=== PATIENT | female | born 1980 | race African-American/Black ===

== ENCOUNTER 2016-10-08 18:53 | Emergency (ER) | payer MEDICAID, OTHER ==
--- NOTE | 2016-10-08 19:06 | ER Document Report ---
ED Medical Screen (RME) - General Stated Complaint: BACK PAIN Notes: 36 yo female c/o low back pain x 1 day. no trauma. no urinary symptoms. low grade fever. + recent surgery Sep 12, umbilical and inguinal hernia repair. no radiculopathy , no paresthesia. reports difficulty walking earlier today. walking with antalgic gait presently. + lumbar spinal and paraspinal tenderness TRAVEL OUTSIDE OF THE [place] IN LAST 30 DAYS: No - Related Data Allergies/Adverse Reactions: No Known Allergies Allergy (Unverified 10/08/16 19:01) Past Medical History Past Surgical History: Reports: Hx Appendectomy - Immunizations Immunizations up to date: Yes Hx Diphtheria, Pertussis, Tetanus Vaccination: No
[2016-10-08 19:32] LABS: ABSOLUTE BASOPHILS # (AUTO) 0.1 10^3/uL (0.0-0.2); ABSOLUTE EOSINOPHILS # (AUTO) 0.2 10^3/uL (0.0-0.6); ABSOLUTE LYMPHOCYTES (AUTO) 2.7 10^3/uL (0.5-4.7); ABSOLUTE MONOCYTES (AUTO) 0.5 10^3/uL (0.1-1.4); ABSOLUTE NEUT (AUTO) 2.1 10^3/uL (1.7-8.2); BASOPHILS % (AUTO) 1.3 % (0-2); HEMATOCRIT 34.3 % (36.0-47.0); HEMOGLOBIN 11.8 g/dL (12.0-15.5); HGB HCT DIFFERENCE 1.1; LYMPHOCYTES % (AUTO) 48.3 % (13-45); MEAN CORPUSCULAR HEMOGLOBIN 31.6 pg (27.0-33.4); MEAN CORPUSCULAR HGB CONC 34.3 g/dL (32.0-36.0); MEAN CORPUSCULAR VOLUME 92 fl (80-97); MONOCYTES % (AUTO) 9.6 % (3-13); RED BLOOD COUNT 3.72 10^6/uL (3.72-5.28); RED CELL DISTRIBUTION WIDTH 12.5 % (11.5-14.0); SEGMENTED NEUTROPHILS % (AUTO) 37.8 % (42-78); WHITE BLOOD COUNT 5.6 10^3/uL (4.0-10.5)
[2016-10-08 19:47] LABS: APPEARANCE,URINE CLEAR; BILIRUBIN,URINE NEGATIVE (NEGATIVE); GLUCOSE, URINE NEGATIVE (NEGATIVE); KETONES,URINE NEGATIVE (NEGATIVE); LEUKOCYTE ESTERASE,URINE NEGATIVE (NEGATIVE); NITRITE,URINE NEGATIVE (NEGATIVE); PROTEIN,URINE NEGATIVE (NEGATIVE); URINE SPECIFIC GRAVITY 1.017
[2016-10-08] MEDS ORDERED: KETOROLAC TROMETHAMINE 60 MG/2 ML SDV IM ONE (23:33)
--- NOTE | 2016-10-09 00:15 | ER Document Report ---
ED General - General TRAVEL OUTSIDE OF THE [place] IN LAST 30 DAYS: No <KERVIN MAYER - Last Filed: 10/09/16 08:28> <PEDRO CASTILLO - Last Filed: 10/09/16 10:27> - General Chief Complaint: Back Pain Stated Complaint: BACK PAIN Notes: Patient is a 36-year-old female presents with complaint of low back pain. Pain is mostly at the lumbosacral junction. She has some pain that goes down her right leg. No numbness. No loss of bowel control. No urinary retention. No numbness over the genital or rectal area. She says occasionally her right leg gives out. She says it does hurt walking around. She's never had this problem before. No fevers or infections. No recent trauma surgery injuries. No history of IV drug abuse. No other complaints at this time. (KERVIN MAYER) - Related Data Allergies/Adverse Reactions: No Known Allergies Allergy (Unverified 10/08/16 19:01) Past Medical History - Social History Smoking Status: Never Smoker Frequency of alcohol use: Occasional Drug Abuse: None Family History: Reviewed & Not Pertinent Patient has suicidal ideation: No Patient has homicidal ideation: No Renal/ Medical History: Denies: Hx Peritoneal Dialysis Past Surgical History: Reports: Hx Appendectomy - Immunizations Immunizations up to date: Yes Hx Diphtheria, Pertussis, Tetanus Vaccination: No <KERVIN MAYER - Last Filed: 10/09/16 08:28> Review of Systems <KERVIN MAYER - Last Filed: 10/09/16 08:28> <PEDRO CASTILLO - Last Filed: 10/09/16 10:27> - Review of Systems Notes: My Normal Review Basic REVIEW OF SYSTEMS: CONSTITUTIONAL : Denies fever, chills, or sweats. Denies recent illness.. RESPIRATORY: Denies cough, cold, or chest congestion. Denies shortness of breath, difficulty breathing, or wheezing. GASTROINTESTINAL: Denies abdominal pain. Denies nausea, vomiting, or diarrhea. Denies constipation. Last BM: GENITOURINARY: Denies difficulty urinating, painful urination, burning, frequency, or blood in urine. FEMALE GENITOURINARY: Denies vaginal bleeding, abnormal or irregular periods. LMP: MUSCULOSKELETAL: Low back pain SKIN: Denies rash or skin lesions. HEMATOLOGIC : Denies easy bruising or bleeding. NEUROLOGICAL: Denies altered mental status or loss of consciousness. Denies headache. Denies weakness or paralysis or loss of use of either side. Denies problems with gait or speech. Denies sensory or motor loss. ALL OTHER SYSTEMS REVIEWED AND NEGATIVE. (KERVIN MAYER) Physical Exam <KERVIN MAYER - Last Filed: 10/09/16 08:28> <PEDRO CASTILLO - Last Filed: 10/09/16 10:27> - Vital signs Vitals: Temp Pulse Resp BP Pulse Ox 97.7 F 65 18 101/55 L 100 10/09/16 06:49 10/09/16 06:49 10/09/16 06:49 10/09/16 06:49 10/09/16 06:49 - Notes Notes: General Appearance: Well nourished, alert, cooperative, no acute distress, moderate obvious discomfort. Vitals: reviewed, See vital signs table. Eyes: PERRL, EOMI, Conjuctiva clear Mouth: No decreasd moisture Lungs: No wheezing, No rales, No rhonci, No accessory muscle use, good air exchange bilaterally. Heart: Normal rate, Regular rythm, No murmur, no rub Abdomen: Normal BS, soft, No rigidity, No abdominal tenderness, No guarding, no rebound, no abdominal masses, no organomegaly. Previous surgical sites have healed well. No pain to palpation of anterior abdomen. Back: No reproducible pain to palpation of low back. Extremities: strength 5/5 in all extremities, good pulses in all extremities, no swelling or tenderness in the extremities, no edema. Skin: warm, dry, appropriate color, no rash Neuro: speech clear, oriented x 3, normal affect, responds appropriately to questions. Patellar reflexes are normal. Distal sensation is intact. Patient does have good strength with plantar and dorsiflexion against resistance. ( KERVIN MAYER) Course - Laboratory Result Diagrams: 10/08/16 19:10 <KERVIN MAYER - Last Filed: 10/09/16 08:28> - Laboratory Result Diagrams: 10/08/16 19:10 - Diagnostic Test Radiology reviewed: Reports reviewed - MRI of the lumbar spine shows only degenerative changes. <PEDRO CASTILLO - Last Filed: 10/09/16 10:27> - Re-evaluation Re-evalutation: 10/09/16 08:27 Patient's physical exam findings not meet criteria for emergency transfer for MRI. If still concerned that she had sudden onset of pain and some weakness going into her right leg. Did talk into staying for an MRI this morning. MRI has been performed and I am awaiting the results. Patient is not having worsening of her neurologic symptoms since being in the ER. She had some improvement with the Toradol. (KERVIN MAYER) - Vital Signs Vital signs: Temp Pulse Resp BP Pulse Ox 97.7 F 65 18 101/55 L 100 10/09/16 06:49 10/09/16 06:49 10/09/16 06:49 10/09/16 06:49 10/09/16 06:49 - Laboratory Laboratory results interpreted by me: 10/08/16 10/08/16 19:10 19:10 Hgb 11.8 L Hct 34.3 L Seg Neutrophils % 37.8 L Lymphocytes % 48.3 H Urine Urobilinogen 2.0 H Discharge <KERVIN MAYER - Last Filed: 10/09/16 08:28> <PEDRO CASTILLO - Last Filed: 10/09/16 10:27> - Discharge Clinical Impression: Back pain Qualifiers: Back pain location: low back pain Chronicity: acute Back pain laterality: bilateral Sciatica presence: with sciatica Sciatica laterality: sciatica of right side Qualified Code(s): M54.41 - Lumbago with sciatica, right side Condition: Good Instructions: Family Physicians / Practices Additional Instructions: LOW BACK PAIN: Three out of every four people will have an episode of disabling back pain during their lifetime. Most commonly the pain is due to straining of the muscles and ligaments in the low back. Usual treatment includes: (1) Rest on a firm surface. Avoid lying on your stomach. (2) Ice pack the painful area. After a few days, gentle heat may be used intermittently to relax the area, or ice packs can be continued. (3) Medication may be needed -- muscle relaxers and antiinflammatory medicines are commonly used. (4) As the back improves, exercises are prescribed to strengthen the back and abdominal muscles. Your doctor will advise you on the proper care for your back at each stage in your recovery. You may be better in a few days -- or healing may take several weeks. If new symptoms of a "herniated disc" (radiation of pain, numbness, or tingling down the back of the leg or weakness in the leg) occur, you should be re-examined. Further testing may be necessary. ORAL NARCOTIC MEDICATION: You have been given a prescription for pain control. This medication is a narcotic. It's best taken with food, as nausea can result if taken on an empty stomach. Don't operate machinery or drive within six hours of taking this medication. Do not combine this medicine with alcohol, or with any medication which can cause sedation (such as cold tablets or sleeping pills) unless you get permission from the physician. Narcotics tend to cause constipation. If possible, drink plenty of fluids and eat a diet high in fiber and fruits. Please be aware that prescription narcotics also have the potential for abuse. People become addicted to these medications because of the general sense of wellbeing that they induce. This feeling along with a significant reduction in tension, anxiety, and aggression provides a stimulating seductive quality to these drugs. Once your pain is under control, we encourage you to discard your unused narcotics. ICE PACKS: Apply ice packs frequently against the painful area. Many different schedules are recommended, such as "20 minutes on, 20 minutes off" or "one hour ice, two hours rest." If you need to work, you may need to go longer between ice treatments. You should plan to have the area ice packed AT LEAST one fourth of the time. The ice should be applied over the wrap, tape, or splint, or over a layer of cloth -- not directly against the skin. Some ice bags have a built-in cloth and can be put directly on the skin. WARM PACKS: After approximately two days, apply gentle heat (such as a heating pad or hot water bottle) for about 20 to 30 minutes about every two hours -- at least four times daily. Warmth and elevation will help you make a more rapid recovery , and will ease the pain considerably. Do not use HOT heat, and never apply heat for longer than 30 minutes. The continuous heat can invisibly damage skin and muscles -- even when no burn is seen on the surface. Damaged muscles can make you MORE sore. FOLLOW-UP CARE: If you have been referred to a physician for follow-up care, call the physician s office for an appointment as you were instructed or within the next two days. If you experience worsening or a significant change in your symptoms, notify the physician immediately or return to the Emergency Department at any time for re-evaluation. Please return to the ER immediately if you have worsening pain, leg weakness, leg numbness, loss of control of your bowel function, inability to urinate, or saddle anesthesia Please follow up with a doctor in 3-4 days for reevaluation. Prescriptions: Tramadol HCl [Ultram 50 mg Tablet] 50 mg PO Q6HP PRN #14 tablet PRN Reason: Forms: Return to Work
[2016-10-09 11:07] VITALS: BP 102/40
== END 2016-10-09 10:59 | disposition home or self-care (01) ==
LOC: ER 18:53
DX: M47.9 Spondylosis, unspecified (principal); M54.41 Lumbago with sciatica, right side; R53.1 Weakness
CPT/HCPCS: 99284; 96372; 36415; 85025; 81025; 81001; 72158; 72131; A9577; J1885

== ENCOUNTER 2018-01-03 17:53 | Emergency (ER) | payer SELFPAY ==
--- NOTE | 2018-01-03 18:46 | ER Document Report ---
ED Medical Screen (RME) - General Chief Complaint: Chest Pain Stated Complaint: CHEST PAIN Time Seen by Provider: 01/03/18 18:39 Mode of Arrival: Ambulatory Information source: Patient Notes: 37-year-old female presents with complaint of left-sided chest pain that started 2 days prior to arrival while at rest. Patient describes the pain as a chest tightness that is located under her left breast. Patient reports several intermittent episodes of this pain some lasting a few seconds and some lasting several minutes. Patient states pain is worse with deep breathing. Patient has no associated nausea, diaphoresis, lightheadedness, shortness of breath. She denies any injury to the chest. She has recently traveled from [place] but denies any history of leg swelling, prior DVT or PE. She currently only takes fish oil. She denies any tobacco, drug or alcohol use. She denies any family history of early cardiac disease. She denies any prior similar symptoms. Patient's last menstrual period was 12/12/2017. EKG showed the patient to be in sinus rhythm at a rate of 83. Patient does have diffuse T-wave flattening with T-wave inversion in V4. No previous EKG available for comparison. I have greeted and performed a rapid initial assessment of this patient. A comprehensive ED assessment and evaluation of the patient including analysis of labs and imaging ( if obtained) and completion of medical decision making will be conducted by an additional ED provider. PHYSICAL EXAMINATION: GENERAL: Well-appearing, well-nourished and in no acute distress. HEAD: Atraumatic, normocephalic. EYES: Pupils equal round extraocular movements intact, conjunctiva are normal. ENT: Nares patent NECK: Normal range of motion LUNGS: No respiratory distress Musculoskeletal: Normal range of motion NEUROLOGICAL: Normal speech, normal gait. PSYCH: Normal mood, normal affect. SKIN: Warm, Dry, normal turgor, no rashes or lesions noted. TRAVEL OUTSIDE OF THE [place] IN LAST 30 DAYS: No - Related Data Allergies/Adverse Reactions: No Known Allergies Allergy (Unverified 10/08/16 19:01) Past Medical History - Social History Chew tobacco use (# tins/day): No Frequency of alcohol use: Occasional Drug Abuse: None Renal/ Medical History: Denies: Hx Peritoneal Dialysis Past Surgical History: Reports: Hx Appendectomy - Immunizations Immunizations up to date: Yes Hx Diphtheria, Pertussis, Tetanus Vaccination: No Physical Exam - Vital signs Vitals: Temp Pulse Resp BP Pulse Ox 98.7 F 86 20 116/66 100 01/03/18 18:16 01/03/18 18:16 01/03/18 18:16 01/03/18 18:16 01/03/18 18:16 Course - Vital Signs Vital signs: Temp Pulse Resp BP Pulse Ox 98.7 F 86 20 116/66 100 01/03/18 18:16 01/03/18 18:16 01/03/18 18:16 01/03/18 18:16 01/03/18 18:16
--- NOTE | 2018-01-03 19:27 | RADIOLOGY REPORT (SQ) ---
EXAM DESCRIPTION: CHEST 2 VIEWS COMPLETED DATE/TIME: 01/03/2018 7:18 pm REASON FOR STUDY: chest pain COMPARISON: None. EXAM PARAMETERS: NUMBER OF VIEWS: two views TECHNIQUE: Digital Frontal and Lateral radiographic views of the chest acquired. RADIATION DOSE: NA LIMITATIONS: none FINDINGS: LUNGS AND PLEURA: No opacities, masses or pneumothorax. No pleural effusion. MEDIASTINUM AND HILAR STRUCTURES: No masses or contour abnormalities. HEART AND VASCULAR STRUCTURES: Heart normal size. No evidence for failure. BONES: No acute findings. HARDWARE: None in the chest. OTHER: No other significant finding. IMPRESSION: NO ACUTE RADIOGRAPHIC FINDING IN THE CHEST. TECHNICAL DOCUMENTATION: JOB ID: [id number] [employer]- All Rights Reserved Reading location - IP/workstation name: [email or web address]
[2018-01-03 19:51] LABS: ABSOLUTE BASOPHILS # (AUTO) 0.1 10^3/uL (0.0-0.2); ABSOLUTE EOSINOPHILS # (AUTO) 0.1 10^3/uL (0.0-0.6); ABSOLUTE LYMPHOCYTES (AUTO) 3.3 10^3/uL (0.5-4.7); ABSOLUTE MONOCYTES (AUTO) 0.6 10^3/uL (0.1-1.4); BASOPHILS % (AUTO) 1.1 % (0-2); EOSINOPHILS % (AUTO) 0.7 % (0-6); HEMATOCRIT 36.3 % (36.0-47.0); HEMOGLOBIN 12.4 g/dL (12.0-15.5); LYMPHOCYTES % (AUTO) 46.4 % (13-45); MEAN CORPUSCULAR HEMOGLOBIN 31.2 pg (27.0-33.4); MEAN CORPUSCULAR HGB CONC 34.2 g/dL (32.0-36.0); MEAN CORPUSCULAR VOLUME 91 fl (80-97); PLATELET COUNT 269 10^3/uL (150-450); RED BLOOD COUNT 3.97 10^6/uL (3.72-5.28); RED CELL DISTRIBUTION WIDTH 12.6 % (11.5-14.0); SEGMENTED NEUTROPHILS % (AUTO) 42.8 % (42-78); TOTAL CELLS COUNTED % (AUTO) 100 %
[2018-01-03 20:15] LABS: ALANINE AMINOTRANSFERASE 20 U/L (9-52); ALBUMIN 4.3 g/dL (3.5-5.0); ALKALINE PHOSPHATASE 74 U/L (38-126); ANION GAP 9 (5-19); ASPARTATE AMINO TRANSFERASE 20 U/L (14-36); BILIRUBIN,DIRECT 0.2 mg/dL (0.0-0.4); BILIRUBIN,TOTAL 0.6 mg/dL (0.2-1.3); BLOOD UREA NITROGEN 10 mg/dL (7-20); CALCIUM 9.3 mg/dL (8.4-10.2); CARBON DIOXIDE 27 mmol/L (22-30); CHLORIDE 108 mmol/L (98-107); GLUCOSE 73 mg/dL (75-110); POTASSIUM 4.2 mmol/L (3.6-5.0); TOTAL PROTEIN 7.4 g/dL (6.3-8.2)
--- NOTE | 2018-01-03 20:59 | ER Document Report ---
ED General - General Chief Complaint: Chest Pain Stated Complaint: CHEST PAIN Time Seen by Provider: 01/03/18 18:39 Mode of Arrival: Ambulatory Information source: Patient Notes: Patient is a 37-year-old female who presents with complaint of chest pain that has been intermittent since Thursday. Patient reports that the pain is on the left side of her chest and feels like a stabbing and squeezing pain. Patient reports that the pain is worse with movement and worse with deep breaths. Patient reports that the pain only lasts for a few minutes at a time and then is self resolving. Patient has not taken any medications for this. Patient denies any nausea, vomiting or fever. Patient denies any shortness of breath. Patient denies the use of any hormonal control, is a non-smoker and denies any recent travel. Patient has no past medical history and a surgical history of a hernia repair and appendectomy. TRAVEL OUTSIDE OF THE [place] IN LAST 30 DAYS: No - Related Data Allergies/Adverse Reactions: No Known Allergies Allergy (Unverified 10/08/16 19:01) Past Medical History - General Information source: Patient - Social History Smoking Status: Never Smoker Chew tobacco use (# tins/day): No Frequency of alcohol use: Occasional Drug Abuse: None Family History: Reviewed & Not Pertinent Patient has suicidal ideation: No Patient has homicidal ideation: No - Medical History Medical History: Negative Renal/ Medical History: Denies: Hx Peritoneal Dialysis Past Surgical History: Reports: Hx Appendectomy, Other - Hernia repair - Immunizations Immunizations up to date: Yes Hx Diphtheria, Pertussis, Tetanus Vaccination: No Review of Systems - Review of Systems Constitutional: No symptoms reported EENT: No symptoms reported Cardiovascular: Chest pain. denies: Palpitations, Dyspnea Respiratory: No symptoms reported Gastrointestinal: No symptoms reported. denies: Abdominal pain, Nausea, Vomiting Genitourinary: No symptoms reported Female Genitourinary: No symptoms reported Musculoskeletal: No symptoms reported Skin: No symptoms reported Hematologic/Lymphatic: No symptoms reported Neurological/Psychological: No symptoms reported Physical Exam - Vital signs Vitals: Temp Pulse Resp BP Pulse Ox 98.7 F 86 20 116/66 100 01/03/18 18:16 01/03/18 18:16 01/03/18 18:16 01/03/18 18:16 01/03/18 18:16 - Notes Notes: PHYSICAL EXAMINATION: GENERAL: Well-appearing, well-nourished and in no acute distress. HEAD: Atraumatic, normocephalic. EYES: Pupils equal round and reactive to light, extraocular movements intact, conjunctiva are normal. ENT: Nares patent, oropharynx clear without exudates. Moist mucous membranes. NECK: Normal range of motion, supple without lymphadenopathy LUNGS: Breath sounds clear to auscultation bilaterally and equal. No wheezes rales or rhonchi. HEART: Regular rate and rhythm without murmurs ABDOMEN: Soft, nontender, nondistended abdomen. No guarding, no rebound. No masses appreciated. Female : deferred Musculoskeletal: Normal range of motion, no pitting or edema. No cyanosis. Pain to left chest wall that is reproducible with palpation. NEUROLOGICAL: Cranial nerves grossly intact. Normal speech, normal gait. Normal sensory, motor exams PSYCH: Normal mood, normal affect. SKIN: Warm, Dry, normal turgor, no rashes or lesions noted. Course - Re-evaluation Re-evalutation: Otherwise healthy 37-year-old female who presents with complaints of chest pain to her left side of her chest that is increased with movement or deep breaths. Patient reports that the pain is intermittent and mild. Patient denies any other associated symptoms. CBC and comprehensive metabolic panel are unremarkable. Troponin is negative. Chest x-ray is normal with no evidence of cardiomegaly or aortic dissection. EKG is a sinus rhythm, rate of 83, normal axis, no ST segment elevations or depressions. Patient is chest pain-free on my examination. Heart score is 0, PERC negative. Patient has no risk factors for acute coronary syndrome or pulmonary embolism. Patient's vital signs are within normal limits. Will discharge patient home with plan to follow-up with her primary care provider if her pain persists, return to the emergency department if she develops worsening chest pain. - Vital Signs Vital signs: Temp Pulse Resp BP Pulse Ox 98.7 F 86 20 111/62 100 01/03/18 18:16 01/03/18 18:16 01/03/18 20:01 01/03/18 20:02 01/03/18 20:02 - Laboratory Result Diagrams: 01/03/18 19:30 01/03/18 19:30 Laboratory results interpreted by me: 01/03/18 01/03/18 19:30 19:30 Lymphocytes % 46.4 H Chloride 108 H Glucose 73 L - Diagnostic Test Radiology reviewed: Image reviewed - EKG Interpretation by Me EKG shows normal: Sinus rhythm Rate: Normal Rhythm: NSR Discharge - Discharge Clinical Impression: Chest pain Qualifiers: Chest pain type: unspecified Qualified Code(s): R07.9 - Chest pain, unspecified Condition: Stable Disposition: HOME, SELF-CARE Additional Instructions: Chest Pain of Unclear Cause The exact cause of your chest pain isn't clear. Fortunately, there is no evidence of a dangerous medical condition. Further testing may be required to find the source of the pain. Most often, we find that this pain is coming from the chest wall -- the muscles or rib joints in the chest. But chest pain can come from the lung and lung lining, the esophagus, the heart valves or heart lining, and even the stomach or gallbladder. Rest. Eat lightly until the pain is gone. We may prescribe medicine for pain and inflammation. You should call the physician immediately if the pain radiates to the shoulder, jaw or arms; if you start to run a fever or develop a cough; or if you develop shortness of breath, or other new or alarming symptoms. You may try antiinflammatories such as ibuprofen for your pain. Please return to the emergency department if you develop worsening pain or shortness of breath as outlined above. Prescriptions: Ibuprofen 800 mg PO TID PRN #30 tablet PRN Reason: For Pain Referrals: DR. MARIN [facility] [Provider Group] - Follow up as needed
[2018-01-03 21:22] VITALS: BP 106/51
--- NOTE | 2018-01-03 21:32 | EKG REPORT ---
SEVERITY:- BORDERLINE ECG - SINUS RHYTHM BORDERLINE T ABNORMALITIES, DIFFUSE LEADS : Confirmed by: Gilbert Angeles MD 03-Jan-2018 21:31:11
== END 2018-01-03 21:22 | disposition home or self-care (01) ==
LOC: ER 17:53
DX: R07.9 Chest pain, unspecified (principal)
CPT/HCPCS: 36415; 71046; 80053; 84484; 85025; 93005; 93010; 99285